=== PATIENT | female | born 1945 ===

== ENCOUNTER 2017-06-28 00:58 | Inpatient (IN) | payer MEDICARE, OTHER ==
[2017-06-28] MEDS ORDERED: PROPOFOL 100 ML (01:09)
[2017-06-28] MEDS: ETOMIDATE 20 MG INJ IV (01:49)
[2017-06-28] MEDS: SUCCINYLCHOLINE CHLORIDE 100 MG/5 ML SYG IV (01:50)
[2017-06-28] MEDS: PROPOFOL 100 ML IV ×2 (01:50→06:56)
[2017-06-28] MEDS: SOD CHLORIDE 0.9% 1,000 ML IV (01:50)
[2017-06-28 02:19] LABS: ADD MAN DIFF? NO
[2017-06-28 02:22] LABS: BASOPHIL # 0.1 10^3/ul (0.0-0.1); BASOPHILS % 0.3 % (0.0-2.0); EOSINOPHILS # 0.2 10^3/ul (0.0-0.5); HEMATOCRIT 24.9 % (37.0-47.0); HEMOGLOBIN 7.6 g/dl (12.0-16.0); LYMPHOCYTES # 2.3 10^3/ul (0.8-2.9); LYMPHOCYTES % 12.8 % (15.0-51.0); MEAN CORPUSCULAR HEMOGLOBIN 31.4 pg (29.0-33.0); MEAN CORPUSCULAR HGB CONC 30.5 g/dl (32.0-37.0); MEAN CORPUSCULAR VOLUME 102.9 fl (82.0-101.0); MEAN PLATELET VOLUME 11.3 fl (7.4-10.4); MONOCYTE # 0.9 10^3/ul (0.3-0.9); MONOCYTES % 4.9 % (0.0-11.0); NEUTROPHIL # 14.3 10^3/ul (1.6-7.5); NEUTROPHILS % 78.1 % (39.0-77.0); NUCLEATED RED BLOOD CELLS # 0.7 10^3/ul (0.0-0.0); NUCLEATED RED BLOOD CELLS% 3.9 /100WBC (0.0-0.0); PLATELET COUNT 420 10^3/UL (140-415); RED BLOOD COUNT 2.42 10^6/ul (4.20-5.40); RED CELL DISTRIBUTION WIDTH 17.4 % (11.5-14.5)
[2017-06-28 02:22] LABS: WHITE BLOOD COUNT 18.3 10^3/ul (4.8-10.8)
[2017-06-28 02:26] LABS: ADD UMIC YES; UR ASCORBIC ACID NEGATIVE (NEGATIVE); UR BACTERIA FEW /HPF (NONE SEEN); UR BILIRUBIN (Dip) NEGATIVE (NEGATIVE); UR BLOOD (Dip) 1+ mg/dL (NEGATIVE); UR BUDDING YEAST MANY /HPF (NONE SEEN); UR CLARITY CLOUDY (CLEAR); UR COLOR YELLOW (YELLOW); UR GLUCOSE (Dip) NEGATIVE (NEGATIVE); UR KETONES (Dip) NEGATIVE (NEGATIVE); UR LEUKOCYTE ESTERASE (Dip) 2+ Leu/ul (NEGATIVE); UR NITRITE (Dip) NEGATIVE (NEGATIVE); UR RBC 81 /HPF (0-5); UR SPECIFIC GRAVITY (Dip) 1.013 (1.003-1.030); UR TOTAL PROTEIN (Dip) 3+ mg/dl (NEGATIVE); UR UROBILINOGEN (Dip) NEGATIVE (NEGATIVE); UR WBC 83 /HPF (0-5)
[2017-06-28] MEDS ORDERED: NORepinephrine 8MG/250 ML (PMX 250 ML IV (02:30)
[2017-06-28 02:31] LABS: AADO2 Arterial 262.8 mmHg (7.0-24.0); Allen Test ACCEPTAB; Arterial Base Excess 0.9 mmol/L (-3.0-3); Arterial Blood Gas Oxygen Sat 98.7 mmHG (95.0-100.0); Arterial COHb 0.4 % (0.0-3.0); Arterial Fraction of Oxyhgb 97.7 % (93.0-99.0); Arterial HCO3 23.8 mmol/L (22.0-26.0); Arterial MetHb 0.6 % (0.0-1.5); Arterial Total Hemglobin 6.3 g/dl (12.0-18.0); Arterial pCO2 29.5 mmhg (35-45); Blood Gas Mean Airway Pressure 11; MODE VENTAC; Site Left Radial
[2017-06-28 02:40] LABS: ALANINE AMINOTRANSFERASE 31 IU/L (13-69); ALBUMIN 3.1 g/dl (3.3-4.9); ALBUMIN/GLOBULIN RATIO 0.91; ALKALINE PHOSPHATASE 116 IU/L (42-121); ANION GAP 23 (8-16); ASPARTATE AMINO TRANSFERASE 70 IU/L (15-46); BILIRUBIN,INDIRECT 0.1 mg/dl (0-1.1); BILIRUBIN,TOTAL 0.1 mg/dl (0.2-1.3); BLOOD UREA NITROGEN 66 mg/dl (7-20); CALCIUM 8.4 mg/dl (8.4-10.2); CARBON DIOXIDE 20 mmol/L (21-31); CHLORIDE 94 mmol/L (97-110); GLUCOSE 139 mg/dl (70-220); SODIUM 132 mmol/L (135-144); TOTAL PROTEIN 6.5 g/dl (6.1-8.1)
[2017-06-28 02:46] LABS: INR 1.16; PT RATIO 1.2
[2017-06-28 02:48] LABS: PARTIAL THROMBOPLASTIN TIME 43.9 Sec (25.0-35.0)
[2017-06-28] MEDS: ACETAMINOPHEN 325 MG SUPP PR (03:43)
[2017-06-28] MEDS: CEFEPIME 2GM/50 ML (PMX) 50 ML IVPB (04:03)
[2017-06-28] MEDS: SODIUM CHLORIDE 0.9% 1L BAG IV* (04:12)
[2017-06-28] MEDS ORDERED: ALBUTEROL HFA 8 GM INHALER INH (04:30)
[2017-06-28] MEDS: DEXTROSE 5%-0.9% NACL 1,000 ML IV (04:30)
[2017-06-28] MEDS ORDERED: MAGNESIUM HYDROXIDE 30ML CUP PO (04:30)
[2017-06-28] MEDS ORDERED: VANCOMYCIN IV PER PHARMACY XX (04:30)
[2017-06-28] MEDS ORDERED: BISACODYL 10 MG SUPP PR (04:30)
[2017-06-28] MEDS ORDERED: ACETAMINOPHEN 650 MG SUPP PR (04:30)
[2017-06-28] MEDS ORDERED: IPRATROPIUM (HFA) 12.9 GM INHALER INH (04:30)
[2017-06-28] MEDS ORDERED: ONDANSETRON 4 MG INJ IV (04:30)
[2017-06-28] MEDS: VANCOMYCIN 1 GM (PMX) 250 ML IVPB (04:52)
[2017-06-28 05:56] LABS: LACTIC ACID 8.7 mmol/L (0.5-2.0)
[2017-06-28 06:43] LABS: LACTIC ACID 1.2 mmol/L (0.5-2.0)
[2017-06-28] MEDS: PIPER-TAZO 2.25 GM (PMX) 50 ML IV ×3 (06:56→21:09)
[2017-06-28 07:00] LABS: IRON 44 ug/dl (35-150)
[2017-06-28] MEDS ORDERED: PENDING SANTYL ORDER FOR WOUND CARE XX (07:00)
[2017-06-28 07:09] LABS: % IRON SATURATION 23 % SAT (22-52); TOTAL IRON BINDING CAPACITY 189 ug/dl (241-421)
[2017-06-28 07:27] LABS: ADD MAN DIFF? NO
[2017-06-28 07:35] LABS: ABNORMAL IP MESSAGE 1; BASOPHILS % 0.1 % (0.0-2.0); EOSINOPHILS % 0.1 % (0.0-7.0); HEMATOCRIT 18.7 % (37.0-47.0); LYMPHOCYTES # 1.3 10^3/ul (0.8-2.9); MEAN CORPUSCULAR HEMOGLOBIN 31.2 pg (29.0-33.0); MEAN CORPUSCULAR HGB CONC 31.6 g/dl (32.0-37.0); MEAN CORPUSCULAR VOLUME 98.9 fl (82.0-101.0); MEAN PLATELET VOLUME 10.6 fl (7.4-10.4); MONOCYTE # 0.3 10^3/ul (0.3-0.9); MONOCYTES % 2.2 % (0.0-11.0); NEUTROPHIL # 12.4 10^3/ul (1.6-7.5); NEUTROPHILS % 85.9 % (39.0-77.0); NUCLEATED RED BLOOD CELLS # 0.2 10^3/ul (0.0-0.0); NUCLEATED RED BLOOD CELLS% 1.4 /100WBC (0.0-0.0); PLATELET COUNT 248 10^3/UL (140-415); RED BLOOD COUNT 1.89 10^6/ul (4.20-5.40)
[2017-06-28 07:35] LABS: WHITE BLOOD COUNT 14.4 10^3/ul (4.8-10.8)
[2017-06-28 07:42] LABS: HEMOGLOBIN 5.9 g/dl (12.0-16.0); POSITIVE DIFF @See below
[2017-06-28] MEDS: DEXTROSE 5%-0.45% NACL 1,000 ML IV (08:01)
[2017-06-28 08:21] LABS: ALANINE AMINOTRANSFERASE 36 IU/L (13-69); ALBUMIN 2.1 g/dl (3.3-4.9); ALKALINE PHOSPHATASE 82 IU/L (42-121); ANION GAP 12 (8-16); ASPARTATE AMINO TRANSFERASE 131 IU/L (15-46); BILIRUBIN,INDIRECT 0.1 mg/dl (0-1.1); BILIRUBIN,TOTAL 0.1 mg/dl (0.2-1.3); BLOOD UREA NITROGEN 62 mg/dl (7-20); CALCIUM 7.2 mg/dl (8.4-10.2); CARBON DIOXIDE 24 mmol/L (21-31); CHLORIDE 101 mmol/L (97-110); CREATININE 2.69 mg/dl (0.44-1.00); GLUCOSE 144 mg/dl (70-220); POTASSIUM 3.8 mmol/L (3.5-5.1); SODIUM 133 mmol/L (135-144); TOTAL PROTEIN 4.7 g/dl (6.1-8.1)
[2017-06-28] MEDS: HEPARIN 5,000 UNIT/0.5 ML VIAL SC (08:40)
[2017-06-28] MEDS: LEVOFLOXACIN 500MG/D5W (PMX) 100 ML IVPB (09:00)
[2017-06-28] MEDS: FAMOTIDINE 20 MG INJ IV (10:59)
[2017-06-28 12:13] LABS: FERRITIN > 10000.0 ng/ml (11.1-264.0)
[2017-06-28 12:22] LABS: AADO2 Arterial 147.6 mmHg (7.0-24.0); Allen Test ACCEPTAB; Arterial Base Excess -0.2 mmol/L (-3.0-3); Arterial Blood Gas Oxygen Sat 94.6 mmHG (95.0-100.0); Arterial COHb 0.1 % (0.0-3.0); Arterial HCO3 25.3 mmol/L (22.0-26.0); Arterial MetHb 0.5 % (0.0-1.5); Arterial Total Hemglobin 7.6 g/dl (12.0-18.0); MODE VENT - AC; Site Left Radial
[2017-06-28] MEDS: ALBUMIN HUMAN 25% 100 ML IV (13:03)
[2017-06-28] MEDS: FOLIC ACID 1 MG TAB NGT (14:59)
[2017-06-28] MEDS: CYANOCOBALAMIN 500 MCG TAB NGT (14:59)
[2017-06-28 15:22] LABS: ANION GAP 15 (8-16); BLOOD UREA NITROGEN 62 mg/dl (7-20); CALCIUM 7.8 mg/dl (8.4-10.2); CARBON DIOXIDE 26 mmol/L (21-31); CHLORIDE 99 mmol/L (97-110); CREATININE 2.62 mg/dl (0.44-1.00); GLUCOSE 119 mg/dl (70-220); POTASSIUM 3.5 mmol/L (3.5-5.1); SODIUM 136 mmol/L (135-144)
[2017-06-28 15:29] LABS: SODIUM,URINE RANDOM 20 mmol/L (30-90)
[2017-06-28 15:29] LABS: POTASSIUM,URINE RANDOM 19.6 mmol/L (25-125)
[2017-06-28] MEDS: PANTOPRAZOLE IV 80 MG in SOD CHLORIDE 0.9% 100 ML IV ×2 (15:30→23:05)
[2017-06-28] MEDS: SOD CHLORIDE 0.9% 500 ML IV (15:30)
[2017-06-28] MEDS ORDERED: SUCCINYLCHOLINE CHLORIDE 100 MG/5 ML SYG IV (16:00)
[2017-06-28] MEDS ORDERED: ETOMIDATE 20 MG INJ (16:00)
[2017-06-28] MEDS: FUROSEMIDE 40 MG INJ IV (16:11)
[2017-06-28] MEDS: EPOETIN 4000 UNITS/ML (NON ESRD/NON ONCOLOGY) SC (17:35)
[2017-06-28 18:30] LABS: OCCULT BLOOD STOOL NEGATIVE (NEGATIVE)
[2017-06-28] MEDS: ASPIRIN 81 MG TAB PO (18:37)
[2017-06-29 05:04] LABS: ADD MAN DIFF? NO
[2017-06-29] MEDS: PIPER-TAZO 2.25 GM (PMX) 50 ML IV ×3 (05:33→21:51)
[2017-06-29 06:15] LABS: CREATINE KINASE 180 IU/L (23-200)
[2017-06-29 06:16] LABS: MAGNESIUM 1.5 mg/dl (1.7-2.5)
[2017-06-29 06:16] LABS: CHOL/HDL RATIO 2.7 RATIO; CHOLESTEROL 71 mg/dl (100-200); HDL CHOLESTEROL 26 mg/dl (33-92); LDL CHOLESTEROL,CALCULATED 16 mg/dl; TRIGLYCERIDES 147 mg/dl (0-149)
[2017-06-29 06:21] LABS: ABNORMAL IP MESSAGE 1; BASOPHILS % 0.2 % (0.0-2.0); EOSINOPHILS # 0.4 10^3/ul (0.0-0.5); HEMATOCRIT 21.1 % (37.0-47.0); LYMPHOCYTES # 0.9 10^3/ul (0.8-2.9); LYMPHOCYTES % 6.7 % (15.0-51.0); MEAN CORPUSCULAR HEMOGLOBIN 31.1 pg (29.0-33.0); MEAN CORPUSCULAR HGB CONC 31.3 g/dl (32.0-37.0); MEAN CORPUSCULAR VOLUME 99.5 fl (82.0-101.0); MONOCYTE # 0.3 10^3/ul (0.3-0.9); MONOCYTES % 2.1 % (0.0-11.0); NEUTROPHIL # 11.9 10^3/ul (1.6-7.5); NEUTROPHILS % 86.5 % (39.0-77.0); NUCLEATED RED BLOOD CELLS # 0.3 10^3/ul (0.0-0.0); NUCLEATED RED BLOOD CELLS% 2.3 /100WBC (0.0-0.0); PLATELET COUNT 250 10^3/UL (140-415); RED BLOOD COUNT 2.12 10^6/ul (4.20-5.40); RED CELL DISTRIBUTION WIDTH 17.4 % (11.5-14.5)
[2017-06-29 06:21] LABS: WHITE BLOOD COUNT 13.8 10^3/ul (4.8-10.8)
[2017-06-29 06:24] LABS: HEMOGLOBIN 6.6 g/dl (12.0-16.0); POSITIVE DIFF @See below
[2017-06-29 06:26] LABS: B-TYPE NATRIURETIC PEPTIDE 33400 PG/ML (0-125)
[2017-06-29 06:28] LABS: CK INDEX 3.2; CK-MB 5.81 ng/ml (0.0-2.4)
[2017-06-29] MEDS: PANTOPRAZOLE IV 80 MG in SOD CHLORIDE 0.9% 100 ML IV ×2 (08:11→20:15)
[2017-06-29] MEDS: ACETAMINOPHEN 650MG/20.3ML CUP PO ×2 (08:11→17:08)
[2017-06-29] MEDS: FOLIC ACID 1 MG TAB NGT (08:12)
[2017-06-29] MEDS: CYANOCOBALAMIN 500 MCG TAB NGT (08:15)
[2017-06-29 08:26] LABS: ALANINE AMINOTRANSFERASE 49 IU/L (13-69); ALBUMIN 2.5 g/dl (3.3-4.9); ALBUMIN/GLOBULIN RATIO 0.83; ALKALINE PHOSPHATASE 79 IU/L (42-121); ANION GAP 14 (8-16); ASPARTATE AMINO TRANSFERASE 137 IU/L (15-46); BILIRUBIN,INDIRECT 0.2 mg/dl (0-1.1); BILIRUBIN,TOTAL 0.2 mg/dl (0.2-1.3); BLOOD UREA NITROGEN 59 mg/dl (7-20); CALCIUM 8.2 mg/dl (8.4-10.2); CARBON DIOXIDE 24 mmol/L (21-31); CHLORIDE 102 mmol/L (97-110); GLUCOSE 84 mg/dl (70-220); POTASSIUM 3.7 mmol/L (3.5-5.1); SODIUM 136 mmol/L (135-144); TOTAL PROTEIN 5.5 g/dl (6.1-8.1)
[2017-06-29] MEDS ORDERED: FOLIC ACID 1 MG TAB NGT (09:00)
[2017-06-29] MEDS ORDERED: CYANOCOBALAMIN 500 MCG TAB NGT (09:00)
[2017-06-29 10:35] LABS: ANISOCYTOSIS 1+ (0-0); BAND NEUTROPHILS #M 1.9 10^3/ul (0.0-0.6); BAND NEUTROPHILS % (M) 14 % (0-4); BURR CELLS 1+ (0-0); EOSINOPHILS % (M) 1 % (0-7); ERYTHROBLAST% (NRBC) (M) 1 % (0-0); LYMPHOCYTES #M 1.3 10^3/ul (0.8-2.9); LYMPHOCYTES % (M) 10 % (15-51); METAMYELOCYTES #M 0.1 10^3/ul (0.0-0.0); METAMYELOCYTES %M 1 % (0-0); PLATELET ESTIMATE NORMAL; POIKILOCYTOSIS 1+ (0-0); POLYCHROMASIA 2+ (0-0); SEG NEUT #M 10.5 10^3/ul (1.7-7.5); SEGMENTED NEUTROPHILS (M) % 74 % (39-77); SMUDGE%M 2 % (0-0)
[2017-06-29] MEDS: PROPOFOL 100 ML IV (12:54)
[2017-06-29] MEDS: MAGNESIUM SULFATE 2 GM/50 ML 50 ML IVPB (14:18)
[2017-06-29] MEDS: ALBUMIN HUMAN 25% 100 ML IV (14:34)
[2017-06-29] MEDS: SOD CHLORIDE 0.9% 500 ML IV (15:35)
[2017-06-29 15:47] LABS: FREE T4 (FREE THYROXINE) 2.12 ng/dl (0.78-2.44)
[2017-06-29] MEDS: FUROSEMIDE 40 MG INJ IV (16:49)
[2017-06-29] MEDS: ASPIRIN 81 MG TAB NGT (18:49)
[2017-06-29] MEDS: BALSAM PERU/CASTOR OIL 60 GM TUBE TOP (20:45)
[2017-06-30] MEDS: VANCOMYCIN 750 MG in DEXTROSE 5% 150 ML IVPB (05:38)
[2017-06-30 05:43] LABS: ADD MAN DIFF? NO
[2017-06-30 06:11] LABS: WHITE BLOOD COUNT 10.1 10^3/ul (4.8-10.8)
[2017-06-30 06:11] LABS: ABNORMAL IP MESSAGE 1; BASOPHILS % 0.2 % (0.0-2.0); EOSINOPHILS # 0.3 10^3/ul (0.0-0.5); EOSINOPHILS % 2.6 % (0.0-7.0); HEMATOCRIT 21.1 % (37.0-47.0); LYMPHOCYTES # 0.8 10^3/ul (0.8-2.9); LYMPHOCYTES % 7.6 % (15.0-51.0); MEAN CORPUSCULAR HEMOGLOBIN 31.4 pg (29.0-33.0); MEAN CORPUSCULAR HGB CONC 30.8 g/dl (32.0-37.0); MEAN CORPUSCULAR VOLUME 101.9 fl (82.0-101.0); MEAN PLATELET VOLUME 11.1 fl (7.4-10.4); MONOCYTE # 0.3 10^3/ul (0.3-0.9); MONOCYTES % 2.8 % (0.0-11.0); NEUTROPHIL # 8.6 10^3/ul (1.6-7.5); NEUTROPHILS % 85.2 % (39.0-77.0); NUCLEATED RED BLOOD CELLS # 0.1 10^3/ul (0.0-0.0); NUCLEATED RED BLOOD CELLS% 0.7 /100WBC (0.0-0.0); PLATELET COUNT 227 10^3/UL (140-415); RED BLOOD COUNT 2.07 10^6/ul (4.20-5.40); RED CELL DISTRIBUTION WIDTH 17.2 % (11.5-14.5)
[2017-06-30] MEDS: PANTOPRAZOLE IV 80 MG in SOD CHLORIDE 0.9% 100 ML IV (06:14)
[2017-06-30 06:18] LABS: ALANINE AMINOTRANSFERASE 41 IU/L (13-69); ALBUMIN 2.5 g/dl (3.3-4.9); ALKALINE PHOSPHATASE 92 IU/L (42-121); ANION GAP 14 (8-16); ASPARTATE AMINO TRANSFERASE 78 IU/L (15-46); BILIRUBIN,INDIRECT 0.2 mg/dl (0-1.1); BILIRUBIN,TOTAL 0.2 mg/dl (0.2-1.3); BLOOD UREA NITROGEN 63 mg/dl (7-20); CALCIUM 7.7 mg/dl (8.4-10.2); CARBON DIOXIDE 24 mmol/L (21-31); CHLORIDE 104 mmol/L (97-110); CREATININE 2.76 mg/dl (0.44-1.00); GLUCOSE 191 mg/dl (70-220); POTASSIUM 3.8 mmol/L (3.5-5.1); SODIUM 138 mmol/L (135-144)
[2017-06-30 06:25] LABS: HEMOGLOBIN 6.5 g/dl (12.0-16.0); POSITIVE DIFF @See below
[2017-06-30 06:44] LABS: MAGNESIUM 2.1 mg/dl (1.7-2.5)
[2017-06-30 06:44] LABS: PHOSPHORUS 3.8 mg/dl (2.5-4.9)
[2017-06-30] MEDS: PIPER-TAZO 2.25 GM (PMX) 50 ML IV (07:32)
[2017-06-30] MEDS: ASPIRIN 81 MG TAB NGT (08:18)
[2017-06-30] MEDS: FOLIC ACID 1 MG TAB NGT (08:18)
[2017-06-30] MEDS: BALSAM PERU/CASTOR OIL 60 GM TUBE TOP ×2 (08:19→22:27)
[2017-06-30] MEDS: CYANOCOBALAMIN 500 MCG TAB NGT (08:19)
[2017-06-30] MEDS: FUROSEMIDE 40 MG INJ IV ×2 (10:32→22:49)
[2017-06-30] MEDS: PROPOFOL 100 ML IV (12:47)
[2017-06-30] MEDS: AMPICILLIN 1 GM/NS (PMX) 50 ML IVPB ×2 (13:39→22:48)
[2017-06-30] MEDS: ALBUMIN HUMAN 25% 100 ML IV (14:24)
[2017-06-30] MEDS: FUROSEMIDE 20 MG INJ IV (15:48)
[2017-06-30] MEDS: EPOETIN 4000 UNITS/ML (NON ESRD/NON ONCOLOGY) SC (17:17)
[2017-06-30] MEDS ORDERED: PANTOPRAZOLE 40 MG INJ IV (18:00)
[2017-06-30] MEDS: morphine 2 MG INJ IV (18:53)
[2017-07-01 06:00] LABS: WHITE BLOOD COUNT 15.2 10^3/ul (4.8-10.8)
[2017-07-01 06:00] LABS: ABNORMAL IP MESSAGE 1; HEMATOCRIT 19.7 % (37.0-47.0); MEAN CORPUSCULAR HEMOGLOBIN 31.1 pg (29.0-33.0); MEAN CORPUSCULAR HGB CONC 30.5 g/dl (32.0-37.0); MEAN CORPUSCULAR VOLUME 102.1 fl (82.0-101.0); MEAN PLATELET VOLUME 11.6 fl (7.4-10.4); NUCLEATED RED BLOOD CELLS% 0.7 /100WBC (0.0-0.0); PLATELET COUNT 199 10^3/UL (140-415); RED BLOOD COUNT 1.93 10^6/ul (4.20-5.40); RED CELL DISTRIBUTION WIDTH 17.1 % (11.5-14.5)
[2017-07-01] MEDS: PROPOFOL 100 ML IV (06:31)
[2017-07-01 06:32] LABS: ANION GAP 15 (8-16); BLOOD UREA NITROGEN 72 mg/dl (7-20); CALCIUM 8.2 mg/dl (8.4-10.2); CARBON DIOXIDE 26 mmol/L (21-31); CHLORIDE 103 mmol/L (97-110); CREATININE 2.86 mg/dl (0.44-1.00); GLUCOSE 193 mg/dl (70-220); PHOSPHORUS 3.2 mg/dl (2.5-4.9); POTASSIUM 3.7 mmol/L (3.5-5.1); SODIUM 140 mmol/L (135-144)
[2017-07-01 06:35] LABS: ADD MAN DIFF? YES; POSITIVE DIFF @See below
[2017-07-01 08:38] LABS: AADO2 Arterial 612.8 mmHg (7.0-24.0); Allen Test ACCEPTAB; Arterial Blood Gas Oxygen Sat 91.1 mmHG (95.0-100.0); Arterial COHb 0.3 % (0.0-3.0); Arterial Fraction of Oxyhgb 90.4 % (93.0-99.0); Arterial HCO3 22.1 mmol/L (22.0-26.0); Arterial MetHb 0.5 % (0.0-1.5); Arterial Total Hemglobin 7.7 g/dl (12.0-18.0); Arterial pCO2 34.6 mmhg (35-45); MODE VENT - AC; Site Left Radial
[2017-07-01] MEDS: FOLIC ACID 1 MG TAB NGT (08:46)
[2017-07-01] MEDS: CYANOCOBALAMIN 500 MCG TAB NGT (08:46)
[2017-07-01] MEDS: AMPICILLIN 1 GM/NS (PMX) 50 ML IVPB (08:46)
[2017-07-01] MEDS: ASPIRIN 81 MG TAB NGT (08:46)
[2017-07-01] MEDS: BALSAM PERU/CASTOR OIL 60 GM TUBE TOP (08:47)
[2017-07-01 12:51] LABS: ANISOCYTOSIS 2+ (0-0); BAND NEUTROPHILS #M 4.1 10^3/ul (0.0-0.6); BAND NEUTROPHILS % (M) 27 % (0-4); HYPOCHROMASIA 1+ (0-0); LYMPHOCYTES #M 1.3 10^3/ul (0.8-2.9); LYMPHOCYTES % (M) 9 % (15-51); MICROCYTOSIS 1+ (0-0); MONOCYTE #M 0.1 10^3/ul (0.3-0.9); MONOCYTES % (M) 1 % (0-11); PLATELET ESTIMATE NORMAL; POIKILOCYTOSIS 1+ (0-0); POLYCHROMASIA 3+ (0-0); SEG NEUT #M 10.2 10^3/ul (1.7-7.5); SEGMENTED NEUTROPHILS (M) % 63 % (39-77); SMUDGE%M 5 % (0-0)
[2017-07-01] MEDS ORDERED: PIPER-TAZO 3.375 GM IV (PMX) 50 ML IVPB (15:00)
[2017-07-01] MEDS: FLUCONAZOLE 100 MG TAB PO (15:41)
[2017-07-01] MEDS: PIPER-TAZO 2.25 GM (PMX) 50 ML IVPB ×2 (15:41→20:33)
[2017-07-01] MEDS ORDERED: DEXTROSE 50% 50 ML SYRINGE IV (16:00)
[2017-07-01] MEDS ORDERED: GLUCOSE GEL 15 GRAM TUBE BUCCAL (16:00)
[2017-07-01] MEDS ORDERED: GLUCAGON 1 MG INJ IM (16:00)
[2017-07-01] MEDS ORDERED: GLUCOSE GEL 15 GRAM TUBE PO ×2 (16:00)
[2017-07-01] MEDS: ALBUMIN HUMAN 25% 100 ML IV (17:45)
[2017-07-01] MEDS: PANTOPRAZOLE 40 MG INJ IV (17:45)
[2017-07-01] MEDS: INSULIN ASPART [NOVOLOG] 3 ML PEN SC ×2 (17:48→20:43)
[2017-07-01] MEDS: BUMETANIDE 12 MG in DEXTROSE 5% 72 ML IV (18:26)
[2017-07-01] MEDS: FUROSEMIDE 40 MG INJ IV ×2 (19:58→23:00)
[2017-07-01] MEDS: METOLAZONE 10 MG TAB PO (22:39)
[2017-07-01 22:54] LABS: AADO2 Arterial 619.4 mmHg (7.0-24.0); Allen Test ACCEPTAB; Arterial Base Excess 1.4 mmol/L (-3.0-3); Arterial Blood Gas Oxygen Sat 82.4 mmHG (95.0-100.0); Arterial COHb 0.4 % (0.0-3.0); Arterial Fraction of Oxyhgb 81.8 % (93.0-99.0); Arterial HCO3 26.5 mmol/L (22.0-26.0); Arterial MetHb 0.3 % (0.0-1.5); Arterial Total Hemglobin 7.4 g/dl (12.0-18.0); Arterial pCO2 44.5 mmhg (35-45); MODE VENT - AC; Site Right Radial
[2017-07-02] MEDS: ACCU-CHEK XX (02:00)
[2017-07-02] MEDS: INSULIN ASPART [NOVOLOG] 3 ML PEN SC ×6 (02:10→20:35)
[2017-07-02 03:45] LABS: AADO2 Arterial 589.2 mmHg (7.0-24.0); Allen Test ACCEPTAB; Arterial Base Excess 2.5 mmol/L (-3.0-3); Arterial Blood Gas Oxygen Sat 95.2 mmHG (95.0-100.0); Arterial COHb 0.3 % (0.0-3.0); Arterial Fraction of Oxyhgb 94.5 % (93.0-99.0); Arterial HCO3 27.4 mmol/L (22.0-26.0); Arterial MetHb 0.4 % (0.0-1.5); Arterial pCO2 44.2 mmhg (35-45); MODE VENT - AC; Site Left Radial
[2017-07-02] MEDS: PROPOFOL 100 ML IV (04:21)
[2017-07-02 05:31] LABS: ADD MAN DIFF? NO
[2017-07-02 05:34] LABS: WHITE BLOOD COUNT 19.2 10^3/ul (4.8-10.8)
[2017-07-02 05:34] LABS: ABNORMAL IP MESSAGE 1; BASOPHILS % 0.1 % (0.0-2.0); EOSINOPHILS # 0.1 10^3/ul (0.0-0.5); EOSINOPHILS % 0.3 % (0.0-7.0); HEMATOCRIT 18.2 % (37.0-47.0); LYMPHOCYTES # 0.8 10^3/ul (0.8-2.9); LYMPHOCYTES % 4.3 % (15.0-51.0); MEAN CORPUSCULAR HEMOGLOBIN 31.1 pg (29.0-33.0); MEAN CORPUSCULAR HGB CONC 30.8 g/dl (32.0-37.0); MEAN CORPUSCULAR VOLUME 101.1 fl (82.0-101.0); MEAN PLATELET VOLUME 12.2 fl (7.4-10.4); MONOCYTE # 0.5 10^3/ul (0.3-0.9); MONOCYTES % 2.7 % (0.0-11.0); NEUTROPHIL # 17.5 10^3/ul (1.6-7.5); NEUTROPHILS % 91.1 % (39.0-77.0); NUCLEATED RED BLOOD CELLS% 0.2 /100WBC (0.0-0.0); PLATELET COUNT 172 10^3/UL (140-415); RED CELL DISTRIBUTION WIDTH 16.5 % (11.5-14.5)
[2017-07-02] MEDS: BALSAM PERU/CASTOR OIL 60 GM TUBE TOP ×3 (06:00→21:00)
[2017-07-02 06:01] LABS: HEMOGLOBIN 5.6 g/dl (12.0-16.0); POSITIVE DIFF @See below
[2017-07-02] MEDS: PANTOPRAZOLE 40 MG INJ IV ×2 (06:04→17:12)
[2017-07-02] MEDS: PIPER-TAZO 2.25 GM (PMX) 50 ML IVPB ×4 (06:05→22:00)
[2017-07-02 06:13] LABS: ALBUMIN 2.8 g/dl (3.3-4.9); ANION GAP 15 (8-16); BLOOD UREA NITROGEN 82 mg/dl (7-20); CALCIUM 8.3 mg/dl (8.4-10.2); CARBON DIOXIDE 27 mmol/L (21-31); CHLORIDE 101 mmol/L (97-110); CREATININE 2.82 mg/dl (0.44-1.00); GLUCOSE 188 mg/dl (70-220); PHOSPHORUS 3.6 mg/dl (2.5-4.9); POTASSIUM 3.3 mmol/L (3.5-5.1); SODIUM 140 mmol/L (135-144)
[2017-07-02] MEDS: ASPIRIN 81 MG TAB NGT (08:12)
[2017-07-02] MEDS: FLUCONAZOLE 100 MG TAB PO (08:12)
[2017-07-02] MEDS: FOLIC ACID 1 MG TAB NGT (08:12)
[2017-07-02] MEDS: CYANOCOBALAMIN 500 MCG TAB NGT (08:12)
[2017-07-02] MEDS: SOD FERRIC GLUC COMPLX 125 MG in SOD CHLORIDE 0.9% 100 ML IVPB ×2 (11:00→12:02)
[2017-07-02] MEDS: POTASSIUM CHLORIDE 50 ML IVPB ×2 (12:41→14:12)
[2017-07-02] MEDS: INSULIN GLARGINE [LANtus] 3 ML PEN SC (12:47)
[2017-07-02] MEDS ORDERED: HEPARIN 1000 UNITS/ML 10 ML INJ (15:12)
[2017-07-02] MEDS: HEPARIN 1000 UNITS/ML 10 ML INJ HE (15:48)
[2017-07-02] MEDS: EPOETIN 4000 UNITS/ML (NON ESRD/NON ONCOLOGY) SC (16:50)
[2017-07-03] MEDS: INSULIN ASPART [NOVOLOG] 3 ML PEN SC ×6 (01:00→20:53)
[2017-07-03] MEDS: ACCU-CHEK XX (02:00)
[2017-07-03] MEDS: ACETAMINOPHEN 650MG/20.3ML CUP PO (02:37)
[2017-07-03] MEDS: PANTOPRAZOLE 40 MG INJ IV ×2 (05:26→18:39)
[2017-07-03] MEDS: PROPOFOL 100 ML IV (05:26)
[2017-07-03] MEDS: PIPER-TAZO 2.25 GM (PMX) 50 ML IVPB ×3 (05:26→22:38)
[2017-07-03 05:30] LABS: ADD MAN DIFF? NO
[2017-07-03 05:50] LABS: WHITE BLOOD COUNT 17.5 10^3/ul (4.8-10.8)
[2017-07-03 05:50] LABS: ABNORMAL IP MESSAGE 1; BASOPHILS % 0.1 % (0.0-2.0); EOSINOPHILS # 0.4 10^3/ul (0.0-0.5); EOSINOPHILS % 2.1 % (0.0-7.0); HEMATOCRIT 18.1 % (37.0-47.0); LYMPHOCYTES % 5.9 % (15.0-51.0); MEAN CORPUSCULAR HEMOGLOBIN 30.7 pg (29.0-33.0); MEAN CORPUSCULAR HGB CONC 29.8 g/dl (32.0-37.0); MEAN CORPUSCULAR VOLUME 102.8 fl (82.0-101.0); MEAN PLATELET VOLUME 12.8 fl (7.4-10.4); MONOCYTE # 0.6 10^3/ul (0.3-0.9); MONOCYTES % 3.4 % (0.0-11.0); NEUTROPHIL # 15.2 10^3/ul (1.6-7.5); NEUTROPHILS % 87.2 % (39.0-77.0); NUCLEATED RED BLOOD CELLS # 0.1 10^3/ul (0.0-0.0); NUCLEATED RED BLOOD CELLS% 0.5 /100WBC (0.0-0.0); PLATELET COUNT 160 10^3/UL (140-415); RED BLOOD COUNT 1.76 10^6/ul (4.20-5.40); RED CELL DISTRIBUTION WIDTH 16.6 % (11.5-14.5)
[2017-07-03 06:41] LABS: ALBUMIN 2.3 g/dl (3.3-4.9); ANION GAP 15 (8-16); BLOOD UREA NITROGEN 86 mg/dl (7-20); CALCIUM 7.7 mg/dl (8.4-10.2); CARBON DIOXIDE 26 mmol/L (21-31); CHLORIDE 104 mmol/L (97-110); CREATININE 2.98 mg/dl (0.44-1.00); GLUCOSE 155 mg/dl (70-220); MAGNESIUM 2.1 mg/dl (1.7-2.5); PHOSPHORUS 2.3 mg/dl (2.5-4.9); POTASSIUM 3.5 mmol/L (3.5-5.1); SODIUM 141 mmol/L (135-144)
[2017-07-03 07:06] LABS: POSITIVE DIFF @See below
[2017-07-03 07:10] LABS: HEMOGLOBIN 5.4 g/dl (12.0-16.0)
[2017-07-03] MEDS: CYANOCOBALAMIN 500 MCG TAB NGT (09:00)
[2017-07-03] MEDS: ASPIRIN 81 MG TAB NGT (09:00)
[2017-07-03 09:09] LABS: AADO2 Arterial 135.4 mmHg (7.0-24.0); Allen Test ACCEPTAB; Arterial Base Excess 3.1 mmol/L (-3.0-3); Arterial Blood Gas Oxygen Sat 99.5 mmHG (95.0-100.0); Arterial COHb 0.9 % (0.0-3.0); Arterial Fraction of Oxyhgb 98.1 % (93.0-99.0); Arterial HCO3 25.9 mmol/L (22.0-26.0); Arterial MetHb 0.5 % (0.0-1.5); Arterial Total Hemglobin 5.9 g/dl (12.0-18.0); Arterial pCO2 30.7 mmhg (35-45); MODE VENT - PC; Site Right Radial
[2017-07-03] MEDS: FOLIC ACID 1 MG TAB NGT (10:04)
[2017-07-03] MEDS: FLUCONAZOLE 100 MG TAB PO (10:05)
[2017-07-03] MEDS: BALSAM PERU/CASTOR OIL 60 GM TUBE TOP ×2 (10:06→21:00)
[2017-07-03] MEDS: INSULIN GLARGINE [LANtus] 3 ML PEN SC (10:08)
[2017-07-03] MEDS: SOD FERRIC GLUC COMPLX 125 MG in SOD CHLORIDE 0.9% 100 ML IVPB (12:11)
[2017-07-03] MEDS: ALBUMIN HUMAN 25% 100 ML IV (16:42)
[2017-07-04] MEDS: INSULIN ASPART [NOVOLOG] 3 ML PEN SC ×6 (00:34→20:37)
[2017-07-04] MEDS: ACCU-CHEK XX (00:36)
[2017-07-04] MEDS: PROPOFOL 100 ML IV (04:25)
[2017-07-04] MEDS: PANTOPRAZOLE 40 MG INJ IV ×2 (05:01→17:30)
[2017-07-04] MEDS: PIPER-TAZO 2.25 GM (PMX) 50 ML IVPB ×3 (05:06→20:26)
[2017-07-04 05:33] LABS: ADD MAN DIFF? NO
[2017-07-04 05:36] LABS: ABNORMAL IP MESSAGE 1; BASOPHILS % 0.1 % (0.0-2.0); EOSINOPHILS # 0.7 10^3/ul (0.0-0.5); EOSINOPHILS % 4.8 % (0.0-7.0); HEMATOCRIT 17.8 % (37.0-47.0); LYMPHOCYTES % 6.6 % (15.0-51.0); MEAN CORPUSCULAR HEMOGLOBIN 29.9 pg (29.0-33.0); MEAN CORPUSCULAR HGB CONC 29.2 g/dl (32.0-37.0); MEAN CORPUSCULAR VOLUME 102.3 fl (82.0-101.0); MEAN PLATELET VOLUME 12.9 fl (7.4-10.4); MONOCYTE # 0.6 10^3/ul (0.3-0.9); NEUTROPHIL # 12.3 10^3/ul (1.6-7.5); NEUTROPHILS % 81.3 % (39.0-77.0); NUCLEATED RED BLOOD CELLS # 0.1 10^3/ul (0.0-0.0); NUCLEATED RED BLOOD CELLS% 0.7 /100WBC (0.0-0.0); PLATELET COUNT 163 10^3/UL (140-415); RED BLOOD COUNT 1.74 10^6/ul (4.20-5.40); RED CELL DISTRIBUTION WIDTH 16.5 % (11.5-14.5)
[2017-07-04 05:36] LABS: WHITE BLOOD COUNT 15.1 10^3/ul (4.8-10.8)
[2017-07-04 06:02] LABS: HEMOGLOBIN 5.2 g/dl (12.0-16.0); POSITIVE DIFF @See below
[2017-07-04 06:09] LABS: ALBUMIN 2.6 g/dl (3.3-4.9); ANION GAP 16 (8-16); BLOOD UREA NITROGEN 56 mg/dl (7-20); CALCIUM 8.6 mg/dl (8.4-10.2); CARBON DIOXIDE 33 mmol/L (21-31); CHLORIDE 104 mmol/L (97-110); CREATININE 1.97 mg/dl (0.44-1.00); GLUCOSE 126 mg/dl (70-220); MAGNESIUM 2.2 mg/dl (1.7-2.5); PHOSPHORUS 1.8 mg/dl (2.5-4.9); SODIUM 150 mmol/L (135-144)
[2017-07-04 06:22] LABS: POTASSIUM 2.7 mmol/L (3.5-5.1)
[2017-07-04 07:54] LABS: ANION GAP 14 (8-16); BLOOD UREA NITROGEN 59 mg/dl (7-20); CARBON DIOXIDE 30 mmol/L (21-31); CHLORIDE 105 mmol/L (97-110); CREATININE 1.95 mg/dl (0.44-1.00); GLUCOSE 148 mg/dl (70-220); SODIUM 146 mmol/L (135-144)
[2017-07-04 07:57] LABS: POTASSIUM 2.8 mmol/L (3.5-5.1)
[2017-07-04] MEDS: FOLIC ACID 1 MG TAB NGT (09:31)
[2017-07-04] MEDS: FLUCONAZOLE 100 MG TAB PO (09:31)
[2017-07-04] MEDS: CYANOCOBALAMIN 500 MCG TAB NGT (09:31)
[2017-07-04] MEDS: BALSAM PERU/CASTOR OIL 60 GM TUBE TOP ×2 (09:32→20:26)
[2017-07-04] MEDS: INSULIN GLARGINE [LANtus] 3 ML PEN SC (09:35)
[2017-07-04] MEDS: SOD FERRIC GLUC COMPLX 125 MG in SOD CHLORIDE 0.9% 100 ML IVPB (11:17)
[2017-07-04] MEDS: POTASSIUM CHLORIDE 20 MEQ in DEXTROSE 5% 100 ML IVPB (12:55)
[2017-07-04 23:04] LABS: ADD UMIC YES; UR ASCORBIC ACID 20 mg/dL (NEGATIVE); UR BACTERIA MODERATE /HPF (NONE SEEN); UR BILIRUBIN (Dip) NEGATIVE (NEGATIVE); UR BLOOD (Dip) 1+ mg/dL (NEGATIVE); UR BUDDING YEAST MANY /HPF (NONE SEEN); UR CLARITY TURBID (CLEAR); UR COLOR AMBER (YELLOW); UR GLUCOSE (Dip) NEGATIVE (NEGATIVE); UR KETONES (Dip) NEGATIVE (NEGATIVE); UR LEUKOCYTE ESTERASE (Dip) 2+ Leu/ul (NEGATIVE); UR MUCUS FEW /HPF (NONE SEEN); UR NITRITE (Dip) NEGATIVE (NEGATIVE); UR RBC 130 /HPF (0-5); UR SPECIFIC GRAVITY (Dip) 1.023 (1.003-1.030); UR TOTAL PROTEIN (Dip) 3+ mg/dl (NEGATIVE); UR UROBILINOGEN (Dip) NEGATIVE (NEGATIVE); UR WBC 68 /HPF (0-5)
[2017-07-05] MEDS: ACCU-CHEK XX (01:02)
[2017-07-05] MEDS: INSULIN ASPART [NOVOLOG] 3 ML PEN SC ×6 (01:10→20:57)
[2017-07-05 05:11] LABS: WHITE BLOOD COUNT 14.1 10^3/ul (4.8-10.8)
[2017-07-05 05:11] LABS: ABNORMAL IP MESSAGE 1; HEMATOCRIT 18.6 % (37.0-47.0); MEAN CORPUSCULAR HEMOGLOBIN 30.2 pg (29.0-33.0); MEAN CORPUSCULAR VOLUME 103.9 fl (82.0-101.0); MEAN PLATELET VOLUME 12.9 fl (7.4-10.4); NUCLEATED RED BLOOD CELLS% 4.6 /100WBC (0.0-0.0); PLATELET COUNT 184 10^3/UL (140-415); RED BLOOD COUNT 1.79 10^6/ul (4.20-5.40); RED CELL DISTRIBUTION WIDTH 16.6 % (11.5-14.5)
[2017-07-05] MEDS: PIPER-TAZO 2.25 GM (PMX) 50 ML IVPB ×3 (05:16→20:51)
[2017-07-05] MEDS: PANTOPRAZOLE 40 MG INJ IV ×2 (05:16→17:34)
[2017-07-05 05:30] LABS: POSITIVE DIFF @See below
[2017-07-05 05:33] LABS: ADD MAN DIFF? YES; HEMOGLOBIN 5.4 g/dl (12.0-16.0)
[2017-07-05 05:44] LABS: ALBUMIN 2.6 g/dl (3.3-4.9); ANION GAP 14 (8-16); BLOOD UREA NITROGEN 37 mg/dl (7-20); CALCIUM 8.2 mg/dl (8.4-10.2); CARBON DIOXIDE 32 mmol/L (21-31); CHLORIDE 108 mmol/L (97-110); CREATININE 1.79 mg/dl (0.44-1.00); GLUCOSE 124 mg/dl (70-220); MAGNESIUM 2.2 mg/dl (1.7-2.5); PHOSPHORUS 1.2 mg/dl (2.5-4.9); SODIUM 151 mmol/L (135-144)
[2017-07-05 05:47] LABS: POTASSIUM 2.9 mmol/L (3.5-5.1)
[2017-07-05 08:10] LABS: ANISOCYTOSIS 1+ (0-0); BAND NEUTROPHILS #M 1.5 10^3/ul (0.0-0.6); BAND NEUTROPHILS % (M) 11 % (0-4); EOSINOPHILS % (M) 3 % (0-7); ERYTHROBLAST% (NRBC) (M) 8 % (0-0); HYPOCHROMASIA 2+ (0-0); LYMPHOCYTES #M 1.2 10^3/ul (0.8-2.9); LYMPHOCYTES % (M) 9 % (15-51); METAMYELOCYTES #M 0.9 10^3/ul (0.0-0.0); METAMYELOCYTES %M 7 % (0-0); MONOCYTE #M 0.2 10^3/ul (0.3-0.9); MONOCYTES % (M) 2 % (0-11); MYELOCYTES #M 0.5 10^3/ul (0.0-0.0); MYELOCYTES % (M) 4 % (0-0); PLATELET ESTIMATE NORMAL; POLYCHROMASIA 2+ (0-0); SEG NEUT #M 9.2 10^3/ul (1.7-7.5); SEGMENTED NEUTROPHILS (M) % 64 % (39-77)
[2017-07-05 08:39] LABS: AADO2 Arterial 135.1 mmHg (7.0-24.0); Allen Test ACCEPTAB; Arterial Base Excess 8.2 mmol/L (-3.0-3); Arterial Blood Gas Oxygen Sat 97.9 mmHG (95.0-100.0); Arterial COHb 0.8 % (0.0-3.0); Arterial Fraction of Oxyhgb 96.9 % (93.0-99.0); Arterial HCO3 31.9 mmol/L (22.0-26.0); Arterial MetHb 0.2 % (0.0-1.5); Arterial Total Hemglobin 6.6 g/dl (12.0-18.0); Arterial pCO2 40.7 mmhg (35-45); MODE VENT - PC; Site Left Radial
[2017-07-05] MEDS: FOLIC ACID 1 MG TAB NGT (08:42)
[2017-07-05] MEDS: FLUCONAZOLE 100 MG TAB PO (08:42)
[2017-07-05] MEDS: CYANOCOBALAMIN 500 MCG TAB NGT (08:43)
[2017-07-05] MEDS: POTASSIUM CHLORIDE IVPB (08:43)
[2017-07-05] MEDS: SODIUM CHLORIDE 0.45% IVPB (08:43)
[2017-07-05] MEDS: BALSAM PERU/CASTOR OIL 60 GM TUBE TOP ×2 (08:43→20:51)
[2017-07-05] MEDS: INSULIN GLARGINE [LANtus] 3 ML PEN SC (08:44)
[2017-07-05] MEDS: SOD FERRIC GLUC COMPLX 125 MG in SOD CHLORIDE 0.9% 100 ML IVPB (10:48)
[2017-07-05] MEDS: EPOETIN 10000 UNITS/ML (NON ESRD/NON ONCOLOGY) SC (15:54)
[2017-07-05] MEDS: ALBUMIN HUMAN 25% 100 ML IV (16:05)
[2017-07-05] MEDS ORDERED: EPOETIN 4000 UNITS/ML (NON ESRD/NON ONCOLOGY) SC (17:00)
[2017-07-05] MEDS: DESMOPRESSIN 20 MCG in SOD CHLORIDE 0.9% 50 ML IVPB (18:20)
[2017-07-05] MEDS: morphine 2 MG INJ IV (23:26)
[2017-07-06] MEDS: PROPOFOL 100 ML IV ×3 (00:47→22:25)
[2017-07-06] MEDS: INSULIN ASPART [NOVOLOG] 3 ML PEN SC ×6 (01:02→21:19)
[2017-07-06] MEDS: ACCU-CHEK XX (01:02)
[2017-07-06] MEDS: ACETAMINOPHEN 650MG/20.3ML CUP PO ×2 (01:54→16:45)
[2017-07-06] MEDS: PANTOPRAZOLE 40 MG INJ IV ×2 (05:15→17:54)
[2017-07-06] MEDS: PIPER-TAZO 2.25 GM (PMX) 50 ML IVPB ×3 (05:15→22:06)
[2017-07-06 05:19] LABS: ADD MAN DIFF? NO
[2017-07-06 05:24] LABS: WHITE BLOOD COUNT 14.4 10^3/ul (4.8-10.8)
[2017-07-06 05:24] LABS: ABNORMAL IP MESSAGE 1; BASOPHILS % 0.1 % (0.0-2.0); EOSINOPHILS # 0.5 10^3/ul (0.0-0.5); EOSINOPHILS % 3.3 % (0.0-7.0); HEMATOCRIT 16.8 % (37.0-47.0); LYMPHOCYTES # 1.7 10^3/ul (0.8-2.9); MEAN CORPUSCULAR HEMOGLOBIN 31.2 pg (29.0-33.0); MEAN CORPUSCULAR HGB CONC 29.2 g/dl (32.0-37.0); MEAN PLATELET VOLUME 12.4 fl (7.4-10.4); MONOCYTE # 1.1 10^3/ul (0.3-0.9); MONOCYTES % 7.7 % (0.0-11.0); NEUTROPHIL # 9.6 10^3/ul (1.6-7.5); NEUTROPHILS % 66.6 % (39.0-77.0); NUCLEATED RED BLOOD CELLS # 0.7 10^3/ul (0.0-0.0); NUCLEATED RED BLOOD CELLS% 4.9 /100WBC (0.0-0.0); PLATELET COUNT 175 10^3/UL (140-415); RED BLOOD COUNT 1.57 10^6/ul (4.20-5.40); RED CELL DISTRIBUTION WIDTH 17.4 % (11.5-14.5)
[2017-07-06 05:43] LABS: HEMOGLOBIN 4.9 g/dl (12.0-16.0); POSITIVE DIFF @See below
[2017-07-06 05:59] LABS: INR 1.22; PROTIME 15.6 Sec (11.9-14.9); PT RATIO 1.2
[2017-07-06 06:19] LABS: ALBUMIN 2.7 g/dl (3.3-4.9); ANION GAP 15 (8-16); BLOOD UREA NITROGEN 35 mg/dl (7-20); CALCIUM 8.1 mg/dl (8.4-10.2); CARBON DIOXIDE 32 mmol/L (21-31); CHLORIDE 104 mmol/L (97-110); CREATININE 1.89 mg/dl (0.44-1.00); GLUCOSE 168 mg/dl (70-220); MAGNESIUM 2.1 mg/dl (1.7-2.5); PHOSPHORUS 1.8 mg/dl (2.5-4.9); SODIUM 147 mmol/L (135-144)
[2017-07-06] MEDS: INSULIN GLARGINE [LANtus] 3 ML PEN SC (07:53)
[2017-07-06] MEDS: CYANOCOBALAMIN 500 MCG TAB NGT (08:38)
[2017-07-06] MEDS: FOLIC ACID 1 MG TAB NGT (08:38)
[2017-07-06] MEDS: FLUCONAZOLE 100 MG TAB PO (08:38)
[2017-07-06] MEDS: BALSAM PERU/CASTOR OIL 60 GM TUBE TOP ×2 (08:55→21:12)
[2017-07-06] MEDS: SOD FERRIC GLUC COMPLX 125 MG in SOD CHLORIDE 0.9% 100 ML IVPB (10:58)
[2017-07-06 11:20] LABS: Allen Test ACCEPTAB; Arterial Base Excess 6.5 mmol/L (-3.0-3); Arterial Blood Gas Oxygen Sat 97.8 mmHG (95.0-100.0); Arterial COHb 0.6 % (0.0-3.0); Arterial Fraction of Oxyhgb 96.9 % (93.0-99.0); Arterial HCO3 30.7 mmol/L (22.0-26.0); Arterial MetHb 0.3 % (0.0-1.5); Arterial Total Hemglobin 5.6 g/dl (12.0-18.0); Arterial pCO2 42.5 mmhg (35-45); MODE VENT - AC; Site Right Radial
[2017-07-07] MEDS: ACCU-CHEK XX (00:50)
[2017-07-07] MEDS: INSULIN ASPART [NOVOLOG] 3 ML PEN SC ×6 (00:55→20:55)
[2017-07-07] MEDS: PIPER-TAZO 2.25 GM (PMX) 50 ML IVPB ×3 (05:46→21:35)
[2017-07-07] MEDS: PANTOPRAZOLE 40 MG INJ IV ×2 (05:46→17:09)
[2017-07-07 06:04] LABS: ADD MAN DIFF? NO
[2017-07-07 06:19] LABS: WHITE BLOOD COUNT 16.1 10^3/ul (4.8-10.8)
[2017-07-07 06:19] LABS: ABNORMAL IP MESSAGE 1; BASOPHILS % 0.2 % (0.0-2.0); EOSINOPHILS # 0.8 10^3/ul (0.0-0.5); EOSINOPHILS % 5.1 % (0.0-7.0); HEMATOCRIT 18.2 % (37.0-47.0); LYMPHOCYTES # 1.9 10^3/ul (0.8-2.9); LYMPHOCYTES % 11.7 % (15.0-51.0); MEAN CORPUSCULAR HEMOGLOBIN 31.5 pg (29.0-33.0); MEAN CORPUSCULAR HGB CONC 28.6 g/dl (32.0-37.0); MEAN CORPUSCULAR VOLUME 110.3 fl (82.0-101.0); MEAN PLATELET VOLUME 13.1 fl (7.4-10.4); MONOCYTE # 1.1 10^3/ul (0.3-0.9); MONOCYTES % 7.1 % (0.0-11.0); NEUTROPHIL # 10.6 10^3/ul (1.6-7.5); NEUTROPHILS % 65.9 % (39.0-77.0); NUCLEATED RED BLOOD CELLS # 0.6 10^3/ul (0.0-0.0); NUCLEATED RED BLOOD CELLS% 3.7 /100WBC (0.0-0.0); PLATELET COUNT 194 10^3/UL (140-415); RED BLOOD COUNT 1.65 10^6/ul (4.20-5.40); RED CELL DISTRIBUTION WIDTH 18.8 % (11.5-14.5)
[2017-07-07 06:52] LABS: ALBUMIN 2.6 g/dl (3.3-4.9); ANION GAP 14 (8-16); BLOOD UREA NITROGEN 56 mg/dl (7-20); CALCIUM 7.8 mg/dl (8.4-10.2); CARBON DIOXIDE 32 mmol/L (21-31); CHLORIDE 102 mmol/L (97-110); CREATININE 2.76 mg/dl (0.44-1.00); GLUCOSE 131 mg/dl (70-220); MAGNESIUM 2.2 mg/dl (1.7-2.5); PHOSPHORUS 2.5 mg/dl (2.5-4.9); POTASSIUM 4.3 mmol/L (3.5-5.1); SODIUM 144 mmol/L (135-144)
[2017-07-07 07:02] LABS: POSITIVE DIFF @See below
[2017-07-07 07:03] LABS: HEMOGLOBIN 5.2 g/dl (12.0-16.0)
[2017-07-07] MEDS: INSULIN GLARGINE [LANtus] 3 ML PEN SC (08:24)
[2017-07-07] MEDS: FOLIC ACID 1 MG TAB NGT (08:26)
[2017-07-07] MEDS: FLUCONAZOLE 100 MG TAB PO (08:26)
[2017-07-07 09:28] LABS: ANISOCYTOSIS 2+ (0-0); BAND NEUTROPHILS #M 1.4 10^3/ul (0.0-0.6); BAND NEUTROPHILS % (M) 9 % (0-4); EOSINOPHILS % (M) 9 % (0-7); ERYTHROBLAST% (NRBC) (M) 2 % (0-0); GIANT THROMBO% (M) 1 % (0-0); HYPOCHROMASIA 2+ (0-0); LYMPHOCYTES #M 1.2 10^3/ul (0.8-2.9); LYMPHOCYTES % (M) 8 % (15-51); METAMYELOCYTES #M 0.1 10^3/ul (0.0-0.0); METAMYELOCYTES %M 1 % (0-0); MICROCYTOSIS 1+ (0-0); MONOCYTE #M 0.8 10^3/ul (0.3-0.9); MONOCYTES % (M) 5 % (0-11); MYELOCYTES #M 0.1 10^3/ul (0.0-0.0); MYELOCYTES % (M) 1 % (0-0); PLATELET ESTIMATE NORMAL; POLYCHROMASIA 1+ (0-0); SEGMENTED NEUTROPHILS (M) % 67 % (39-77); SMUDGE%M 4 % (0-0)
[2017-07-07] MEDS: BALSAM PERU/CASTOR OIL 60 GM TUBE TOP ×2 (13:00→20:55)
[2017-07-07] MEDS: CYANOCOBALAMIN 500 MCG TAB NGT (13:07)
[2017-07-07] MEDS: ALBUMIN HUMAN 25% 100 ML IV (14:05)
[2017-07-07] MEDS: PROPOFOL 100 ML IV (15:15)
[2017-07-07] MEDS: EPOETIN 10000 UNITS/ML (NON ESRD/NON ONCOLOGY) SC (17:09)
[2017-07-08] MEDS: INSULIN ASPART [NOVOLOG] 3 ML PEN SC ×6 (00:19→21:08)
[2017-07-08] MEDS: ACCU-CHEK XX (02:00)
[2017-07-08] MEDS: PROPOFOL 100 ML IV ×3 (03:34→22:30)
[2017-07-08 05:25] LABS: WHITE BLOOD COUNT 15.5 10^3/ul (4.8-10.8)
[2017-07-08 05:25] LABS: ABNORMAL IP MESSAGE 1; HEMATOCRIT 18.4 % (37.0-47.0); MEAN CORPUSCULAR HEMOGLOBIN 31.3 pg (29.0-33.0); MEAN CORPUSCULAR HGB CONC 28.3 g/dl (32.0-37.0); MEAN CORPUSCULAR VOLUME 110.8 fl (82.0-101.0); MEAN PLATELET VOLUME 12.9 fl (7.4-10.4); NUCLEATED RED BLOOD CELLS% 3.7 /100WBC (0.0-0.0); PLATELET COUNT 170 10^3/UL (140-415); RED BLOOD COUNT 1.66 10^6/ul (4.20-5.40); RED CELL DISTRIBUTION WIDTH 19.7 % (11.5-14.5)
[2017-07-08 06:12] LABS: HEMOGLOBIN 5.2 g/dl (12.0-16.0); POSITIVE DIFF @See below
[2017-07-08] MEDS: PIPER-TAZO 2.25 GM (PMX) 50 ML IVPB ×3 (06:12→22:30)
[2017-07-08] MEDS: PANTOPRAZOLE 40 MG INJ IV ×2 (06:12→18:24)
[2017-07-08 06:13] LABS: ADD MAN DIFF? YES
[2017-07-08 06:55] LABS: ANION GAP 17 (8-16); BLOOD UREA NITROGEN 41 mg/dl (7-20); CALCIUM 7.8 mg/dl (8.4-10.2); CARBON DIOXIDE 30 mmol/L (21-31); CHLORIDE 99 mmol/L (97-110); CREATININE 2.14 mg/dl (0.44-1.00); GLUCOSE 143 mg/dl (70-220); MAGNESIUM 2.2 mg/dl (1.7-2.5); PHOSPHORUS 2.9 mg/dl (2.5-4.9); POTASSIUM 4.2 mmol/L (3.5-5.1); SODIUM 142 mmol/L (135-144)
[2017-07-08] MEDS: INSULIN GLARGINE [LANtus] 3 ML PEN SC (08:08)
[2017-07-08] MEDS: CYANOCOBALAMIN 500 MCG TAB NGT (09:40)
[2017-07-08] MEDS: FOLIC ACID 1 MG TAB NGT (09:41)
[2017-07-08] MEDS: FLUCONAZOLE 100 MG TAB PO (09:41)
[2017-07-08] MEDS: BALSAM PERU/CASTOR OIL 60 GM TUBE TOP ×2 (09:41→21:15)
[2017-07-08 10:43] LABS: ANISOCYTOSIS 2+ (0-0); BAND NEUTROPHILS #M 2.4 10^3/ul (0.0-0.6); BAND NEUTROPHILS % (M) 16 % (0-4); BASOPHIL #M 0.1 10^3/ul (0.0-0.0); BASOPHILS % (M) 1 % (0-2); EOSINOPHILS % (M) 4 % (0-7); ERYTHROBLAST% (NRBC) (M) 2 % (0-0); GIANT THROMBO% (M) 3 % (0-0); HYPOCHROMASIA 1+ (0-0); LYMPHOCYTES #M 1.8 10^3/ul (0.8-2.9); LYMPHOCYTES % (M) 12 % (15-51); METAMYELOCYTES #M 0.7 10^3/ul (0.0-0.0); METAMYELOCYTES %M 5 % (0-0); MICROCYTOSIS 1+ (0-0); MONOCYTE #M 0.4 10^3/ul (0.3-0.9); MONOCYTES % (M) 3 % (0-11); MYELOCYTES #M 0.1 10^3/ul (0.0-0.0); MYELOCYTES % (M) 1 % (0-0); PLATELET ESTIMATE NORMAL; POLYCHROMASIA 3+ (0-0); SEG NEUT #M 9.4 10^3/ul (1.7-7.5); SEGMENTED NEUTROPHILS (M) % 58 % (39-77); SMUDGE%M 1 % (0-0)
[2017-07-09] MEDS: INSULIN ASPART [NOVOLOG] 3 ML PEN SC ×6 (01:00→20:51)
[2017-07-09] MEDS: ACCU-CHEK XX (01:15)
[2017-07-09] MEDS: PANTOPRAZOLE 40 MG INJ IV ×2 (05:40→17:48)
[2017-07-09] MEDS: PIPER-TAZO 2.25 GM (PMX) 50 ML IVPB (05:42)
[2017-07-09] MEDS: PROPOFOL 100 ML IV ×2 (06:27→18:57)
[2017-07-09] MEDS: ALBUMIN HUMAN 25% 100 ML IV (08:10)
[2017-07-09] MEDS: INSULIN GLARGINE [LANtus] 3 ML PEN SC (08:36)
[2017-07-09] MEDS: FLUCONAZOLE 100 MG TAB PO (09:52)
[2017-07-09] MEDS: CYANOCOBALAMIN 500 MCG TAB NGT (09:52)
[2017-07-09] MEDS: FOLIC ACID 1 MG TAB NGT (09:52)
[2017-07-09] MEDS: BALSAM PERU/CASTOR OIL 60 GM TUBE TOP ×2 (09:53→20:52)
[2017-07-09 10:56] LABS: ADD MAN DIFF? NO
[2017-07-09 11:00] LABS: WHITE BLOOD COUNT 13.6 10^3/ul (4.8-10.8)
[2017-07-09 11:00] LABS: ABNORMAL IP MESSAGE 1; BASOPHILS % 0.2 % (0.0-2.0); EOSINOPHILS # 0.5 10^3/ul (0.0-0.5); EOSINOPHILS % 3.5 % (0.0-7.0); HEMATOCRIT 19.6 % (37.0-47.0); MEAN CORPUSCULAR HEMOGLOBIN 31.6 pg (29.0-33.0); MEAN CORPUSCULAR HGB CONC 28.6 g/dl (32.0-37.0); MEAN CORPUSCULAR VOLUME 110.7 fl (82.0-101.0); MEAN PLATELET VOLUME 12.9 fl (7.4-10.4); MONOCYTE # 0.9 10^3/ul (0.3-0.9); MONOCYTES % 6.7 % (0.0-11.0); NEUTROPHILS % 73.5 % (39.0-77.0); NUCLEATED RED BLOOD CELLS # 0.3 10^3/ul (0.0-0.0); NUCLEATED RED BLOOD CELLS% 1.9 /100WBC (0.0-0.0); PLATELET COUNT 160 10^3/UL (140-415); RED BLOOD COUNT 1.77 10^6/ul (4.20-5.40); RED CELL DISTRIBUTION WIDTH 20.6 % (11.5-14.5)
[2017-07-09 11:26] LABS: POSITIVE DIFF @See below
[2017-07-09 11:27] LABS: HEMOGLOBIN 5.6 g/dl (12.0-16.0)
[2017-07-09 11:30] LABS: ALANINE AMINOTRANSFERASE 33 IU/L (13-69); ALBUMIN/GLOBULIN RATIO 1.07; ALKALINE PHOSPHATASE 77 IU/L (42-121); ANION GAP 14 (8-16); ASPARTATE AMINO TRANSFERASE 36 IU/L (15-46); BILIRUBIN,INDIRECT 0.2 mg/dl (0-1.1); BILIRUBIN,TOTAL 0.2 mg/dl (0.2-1.3); BLOOD UREA NITROGEN 30 mg/dl (7-20); CALCIUM 7.8 mg/dl (8.4-10.2); CARBON DIOXIDE 32 mmol/L (21-31); CHLORIDE 95 mmol/L (97-110); CREATININE 1.47 mg/dl (0.44-1.00); GLUCOSE 140 mg/dl (70-220); POTASSIUM 3.6 mmol/L (3.5-5.1); SODIUM 137 mmol/L (135-144); TOTAL PROTEIN 5.8 g/dl (6.1-8.1)
[2017-07-09] MEDS: EPOETIN 10000 UNITS/ML (NON ESRD/NON ONCOLOGY) SC (17:48)
[2017-07-10] MEDS: INSULIN ASPART [NOVOLOG] 3 ML PEN SC ×6 (01:15→20:57)
[2017-07-10] MEDS: ACCU-CHEK XX (01:17)
[2017-07-10] MEDS: PROPOFOL 100 ML IV ×2 (05:50→17:35)
[2017-07-10] MEDS: PANTOPRAZOLE 40 MG INJ IV ×2 (05:57→18:07)
[2017-07-10 06:21] LABS: WHITE BLOOD COUNT 13.4 10^3/ul (4.8-10.8)
[2017-07-10 06:21] LABS: ABNORMAL IP MESSAGE 1; HEMATOCRIT 20.2 % (37.0-47.0); MEAN CORPUSCULAR HEMOGLOBIN 32.1 pg (29.0-33.0); MEAN CORPUSCULAR HGB CONC 29.2 g/dl (32.0-37.0); MEAN CORPUSCULAR VOLUME 109.8 fl (82.0-101.0); MEAN PLATELET VOLUME 13.1 fl (7.4-10.4); NUCLEATED RED BLOOD CELLS% 1.4 /100WBC (0.0-0.0); PLATELET COUNT 172 10^3/UL (140-415); RED BLOOD COUNT 1.84 10^6/ul (4.20-5.40); RED CELL DISTRIBUTION WIDTH 21.1 % (11.5-14.5)
[2017-07-10 06:29] LABS: ADD MAN DIFF? YES; POSITIVE DIFF @See below
[2017-07-10 06:31] LABS: HEMOGLOBIN 5.9 g/dl (12.0-16.0)
[2017-07-10 06:51] LABS: ANION GAP 15 (8-16); BLOOD UREA NITROGEN 45 mg/dl (7-20); CALCIUM 7.8 mg/dl (8.4-10.2); CARBON DIOXIDE 33 mmol/L (21-31); CHLORIDE 94 mmol/L (97-110); CREATININE 2.06 mg/dl (0.44-1.00); GLUCOSE 119 mg/dl (70-220); MAGNESIUM 2.2 mg/dl (1.7-2.5); PHOSPHORUS 3.6 mg/dl (2.5-4.9); POTASSIUM 4.5 mmol/L (3.5-5.1); SODIUM 137 mmol/L (135-144)
[2017-07-10 07:40] LABS: ANISOCYTOSIS 2+ (0-0); BAND NEUTROPHILS #M 1.6 10^3/ul (0.0-0.6); BAND NEUTROPHILS % (M) 12 % (0-4); EOSINOPHILS % (M) 6 % (0-7); GIANT THROMBO% (M) 1 % (0-0); LYMPHOCYTES % (M) 8 % (15-51); METAMYELOCYTES #M 0.1 10^3/ul (0.0-0.0); METAMYELOCYTES %M 1 % (0-0); MONOCYTES % (M) 15 % (0-11); PLATELET ESTIMATE NORMAL; POLYCHROMASIA 3+ (0-0); REACTIVE LYMPHOCYTES #M 0.5 10^3/ul (0.0-0.0); REACTIVE LYMPHOCYTES% (M) 4 % (0-0); SEG NEUT #M 7.5 10^3/ul (1.7-7.5); SEGMENTED NEUTROPHILS (M) % 54 % (39-77)
[2017-07-10] MEDS: INSULIN GLARGINE [LANtus] 3 ML PEN SC (08:13)
[2017-07-10] MEDS: CYANOCOBALAMIN 500 MCG TAB NGT (08:56)
[2017-07-10] MEDS: FOLIC ACID 1 MG TAB NGT (08:57)
[2017-07-10] MEDS: BALSAM PERU/CASTOR OIL 60 GM TUBE TOP ×2 (09:08→20:58)
[2017-07-10] MEDS: morphine 2 MG INJ IV ×2 (15:20→16:12)
[2017-07-11] MEDS: ACCU-CHEK XX (01:31)
[2017-07-11] MEDS: INSULIN ASPART [NOVOLOG] 3 ML PEN SC ×6 (01:31→20:43)
[2017-07-11] MEDS: PANTOPRAZOLE 40 MG INJ IV ×2 (05:23→17:23)
[2017-07-11 05:53] LABS: ADD MAN DIFF? NO
[2017-07-11 06:00] LABS: AADO2 Arterial 89.3 mmHg (7.0-24.0); Allen Test ACCEPTAB; Arterial Base Excess 5.6 mmol/L (-3.0-3); Arterial Blood Gas Oxygen Sat 94.4 mmHG (95.0-100.0); Arterial COHb 1.2 % (0.0-3.0); Arterial Fraction of Oxyhgb 93.2 % (93.0-99.0); Arterial HCO3 29.7 mmol/L (22.0-26.0); Arterial MetHb 0.1 % (0.0-1.5); Arterial Total Hemglobin 7.7 g/dl (12.0-18.0); Arterial pCO2 41.3 mmhg (35-45); MODE VENT - AC; Site Right Radial
[2017-07-11 06:01] LABS: ABNORMAL IP MESSAGE 1; BASOPHILS % 0.1 % (0.0-2.0); EOSINOPHILS # 0.7 10^3/ul (0.0-0.5); EOSINOPHILS % 4.9 % (0.0-7.0); HEMATOCRIT 20.8 % (37.0-47.0); LYMPHOCYTES # 1.8 10^3/ul (0.8-2.9); LYMPHOCYTES % 13.1 % (15.0-51.0); MEAN CORPUSCULAR HEMOGLOBIN 31.9 pg (29.0-33.0); MEAN CORPUSCULAR HGB CONC 29.3 g/dl (32.0-37.0); MEAN CORPUSCULAR VOLUME 108.9 fl (82.0-101.0); MEAN PLATELET VOLUME 12.7 fl (7.4-10.4); MONOCYTE # 1.2 10^3/ul (0.3-0.9); NEUTROPHIL # 9.4 10^3/ul (1.6-7.5); NEUTROPHILS % 69.5 % (39.0-77.0); NUCLEATED RED BLOOD CELLS # 0.1 10^3/ul (0.0-0.0); NUCLEATED RED BLOOD CELLS% 0.6 /100WBC (0.0-0.0); PLATELET COUNT 188 10^3/UL (140-415); RED BLOOD COUNT 1.91 10^6/ul (4.20-5.40); RED CELL DISTRIBUTION WIDTH 21.1 % (11.5-14.5)
[2017-07-11 06:01] LABS: WHITE BLOOD COUNT 13.6 10^3/ul (4.8-10.8)
[2017-07-11 06:18] LABS: POSITIVE DIFF @See below
[2017-07-11 06:21] LABS: HEMOGLOBIN 6.1 g/dl (12.0-16.0)
[2017-07-11 06:38] LABS: LACTIC ACID 0.9 mmol/L (0.5-2.0)
[2017-07-11 06:42] LABS: ANION GAP 15 (8-16); BLOOD UREA NITROGEN 57 mg/dl (7-20); CARBON DIOXIDE 32 mmol/L (21-31); CHLORIDE 93 mmol/L (97-110); CREATININE 2.59 mg/dl (0.44-1.00); GLUCOSE 121 mg/dl (70-220); MAGNESIUM 2.4 mg/dl (1.7-2.5); PHOSPHORUS 4.5 mg/dl (2.5-4.9); POTASSIUM 5.1 mmol/L (3.5-5.1); SODIUM 135 mmol/L (135-144)
[2017-07-11] MEDS: PROPOFOL 100 ML IV ×2 (06:42→17:23)
[2017-07-11] MEDS: FOLIC ACID 1 MG TAB NGT (08:45)
[2017-07-11] MEDS: CYANOCOBALAMIN 500 MCG TAB NGT (08:45)
[2017-07-11] MEDS: INSULIN GLARGINE [LANtus] 3 ML PEN SC (08:46)
[2017-07-11] MEDS: BALSAM PERU/CASTOR OIL 60 GM TUBE TOP ×2 (08:58→21:17)
[2017-07-11] MEDS: ALBUMIN HUMAN 25% 100 ML IV (12:35)
[2017-07-12] MEDS: INSULIN ASPART [NOVOLOG] 3 ML PEN SC ×6 (01:00→20:55)
[2017-07-12] MEDS: ACCU-CHEK XX ×2 (02:00)
[2017-07-12] MEDS: PROPOFOL 100 ML IV ×2 (02:01→11:05)
[2017-07-12 05:44] LABS: ADD MAN DIFF? NO
[2017-07-12 05:48] LABS: ABNORMAL IP MESSAGE 1; BASOPHILS % 0.2 % (0.0-2.0); EOSINOPHILS # 0.5 10^3/ul (0.0-0.5); EOSINOPHILS % 4.8 % (0.0-7.0); HEMATOCRIT 19.3 % (37.0-47.0); LYMPHOCYTES # 1.7 10^3/ul (0.8-2.9); LYMPHOCYTES % 14.9 % (15.0-51.0); MEAN CORPUSCULAR HEMOGLOBIN 31.6 pg (29.0-33.0); MEAN PLATELET VOLUME 13.3 fl (7.4-10.4); MONOCYTE # 1.2 10^3/ul (0.3-0.9); MONOCYTES % 10.5 % (0.0-11.0); NEUTROPHIL # 7.5 10^3/ul (1.6-7.5); NEUTROPHILS % 67.4 % (39.0-77.0); NUCLEATED RED BLOOD CELLS% 0.4 /100WBC (0.0-0.0); PLATELET COUNT 186 10^3/UL (140-415); RED BLOOD COUNT 1.77 10^6/ul (4.20-5.40); RED CELL DISTRIBUTION WIDTH 20.2 % (11.5-14.5)
[2017-07-12 05:48] LABS: WHITE BLOOD COUNT 11.2 10^3/ul (4.8-10.8)
[2017-07-12] MEDS: PANTOPRAZOLE 40 MG INJ IV ×2 (06:21→17:42)
[2017-07-12 06:29] LABS: POSITIVE DIFF @See below
[2017-07-12 06:32] LABS: HEMOGLOBIN 5.6 g/dl (12.0-16.0)
[2017-07-12 06:33] LABS: ANION GAP 13 (8-16); BLOOD UREA NITROGEN 42 mg/dl (7-20); CARBON DIOXIDE 34 mmol/L (21-31); CHLORIDE 90 mmol/L (97-110); CREATININE 2.03 mg/dl (0.44-1.00); GLUCOSE 108 mg/dl (70-220); MAGNESIUM 2.3 mg/dl (1.7-2.5); PHOSPHORUS 4.3 mg/dl (2.5-4.9); POTASSIUM 3.7 mmol/L (3.5-5.1); SODIUM 133 mmol/L (135-144)
[2017-07-12] MEDS: INSULIN GLARGINE [LANtus] 3 ML PEN SC (07:58)
[2017-07-12] MEDS: FOLIC ACID 1 MG TAB NGT (08:50)
[2017-07-12] MEDS: CYANOCOBALAMIN 500 MCG TAB NGT (08:50)
[2017-07-12] MEDS: BALSAM PERU/CASTOR OIL 60 GM TUBE TOP ×2 (09:02→20:59)
[2017-07-12] MEDS ORDERED: ALBUMIN HUMAN 5% 500 ML (13:00)
[2017-07-12] MEDS: ALBUMIN HUMAN 25% 100 ML IV (13:07)
[2017-07-12] MEDS: EPOETIN 10000 UNITS/ML (NON ESRD/NON ONCOLOGY) SC (17:06)
[2017-07-12] MEDS: morphine 2 MG INJ IV (23:41)
[2017-07-13] MEDS: INSULIN ASPART [NOVOLOG] 3 ML PEN SC ×6 (01:00→21:00)
[2017-07-13] MEDS: ACCU-CHEK XX (02:00)
[2017-07-13] MEDS: PROPOFOL 100 ML IV ×3 (04:34→20:32)
[2017-07-13 05:22] LABS: WHITE BLOOD COUNT 9.6 10^3/ul (4.8-10.8)
[2017-07-13 05:22] LABS: ABNORMAL IP MESSAGE 1; HEMATOCRIT 18.8 % (37.0-47.0); MEAN CORPUSCULAR HEMOGLOBIN 31.8 pg (29.0-33.0); MEAN CORPUSCULAR HGB CONC 29.8 g/dl (32.0-37.0); MEAN CORPUSCULAR VOLUME 106.8 fl (82.0-101.0); NUCLEATED RED BLOOD CELLS% 0.2 /100WBC (0.0-0.0); PLATELET COUNT 189 10^3/UL (140-415); RED BLOOD COUNT 1.76 10^6/ul (4.20-5.40)
[2017-07-13 05:42] LABS: POSITIVE DIFF @See below
[2017-07-13 05:43] LABS: ADD MAN DIFF? YES; HEMOGLOBIN 5.6 g/dl (12.0-16.0)
[2017-07-13] MEDS: PANTOPRAZOLE 40 MG INJ IV ×2 (05:43→18:09)
[2017-07-13 06:14] LABS: ALBUMIN 2.9 g/dl (3.3-4.9); ANION GAP 11 (8-16); BLOOD UREA NITROGEN 28 mg/dl (7-20); CALCIUM 8.2 mg/dl (8.4-10.2); CARBON DIOXIDE 33 mmol/L (21-31); CHLORIDE 93 mmol/L (97-110); GLUCOSE 94 mg/dl (70-220); MAGNESIUM 2.2 mg/dl (1.7-2.5); PHOSPHORUS 4.2 mg/dl (2.5-4.9); POTASSIUM 3.8 mmol/L (3.5-5.1); SODIUM 133 mmol/L (135-144)
[2017-07-13] MEDS: CYANOCOBALAMIN 500 MCG TAB NGT (08:38)
[2017-07-13] MEDS: FOLIC ACID 1 MG TAB NGT (08:38)
[2017-07-13] MEDS: INSULIN GLARGINE [LANtus] 3 ML PEN SC (09:07)
[2017-07-13] MEDS: BALSAM PERU/CASTOR OIL 60 GM TUBE TOP ×2 (09:07→21:00)
[2017-07-13 09:38] LABS: ANISOCYTOSIS 1+ (0-0); BAND NEUTROPHILS #M 0.9 10^3/ul (0.0-0.6); BAND NEUTROPHILS % (M) 10 % (0-4); BASOPHILS % (M) 1 % (0-2); EOSINOPHILS % (M) 5 % (0-7); HYPOCHROMASIA 2+ (0-0); LYMPHOCYTES #M 1.3 10^3/ul (0.8-2.9); LYMPHOCYTES % (M) 14 % (15-51); METAMYELOCYTES #M 0.4 10^3/ul (0.0-0.0); METAMYELOCYTES %M 5 % (0-0); MONOCYTE #M 0.4 10^3/ul (0.3-0.9); MONOCYTES % (M) 5 % (0-11); PLATELET ESTIMATE NORMAL; POIKILOCYTOSIS 1+ (0-0); POLYCHROMASIA 1+ (0-0); SEG NEUT #M 5.8 10^3/ul (1.7-7.5); SEGMENTED NEUTROPHILS (M) % 60 % (39-77); SMUDGE%M 4 % (0-0)
[2017-07-13] MEDS: DEXTROSE 50% 50 ML SYRINGE IV (18:08)
[2017-07-14] MEDS: INSULIN ASPART [NOVOLOG] 3 ML PEN SC ×3 (01:00→08:33)
[2017-07-14 05:43] LABS: ADD MAN DIFF? NO
[2017-07-14 05:50] LABS: ABNORMAL IP MESSAGE 1; BASOPHILS % 0.3 % (0.0-2.0); EOSINOPHILS # 0.5 10^3/ul (0.0-0.5); EOSINOPHILS % 6.1 % (0.0-7.0); HEMATOCRIT 19.6 % (37.0-47.0); LYMPHOCYTES # 1.3 10^3/ul (0.8-2.9); LYMPHOCYTES % 14.4 % (15.0-51.0); MEAN CORPUSCULAR HEMOGLOBIN 32.1 pg (29.0-33.0); MEAN CORPUSCULAR HGB CONC 30.6 g/dl (32.0-37.0); MEAN CORPUSCULAR VOLUME 104.8 fl (82.0-101.0); MEAN PLATELET VOLUME 12.6 fl (7.4-10.4); MONOCYTE # 1.1 10^3/ul (0.3-0.9); MONOCYTES % 12.5 % (0.0-11.0); NEUTROPHIL # 5.8 10^3/ul (1.6-7.5); NEUTROPHILS % 65.5 % (39.0-77.0); NUCLEATED RED BLOOD CELLS% 0.2 /100WBC (0.0-0.0); PLATELET COUNT 224 10^3/UL (140-415); RED BLOOD COUNT 1.87 10^6/ul (4.20-5.40); RED CELL DISTRIBUTION WIDTH 18.6 % (11.5-14.5)
[2017-07-14 05:50] LABS: WHITE BLOOD COUNT 8.8 10^3/ul (4.8-10.8)
[2017-07-14 05:59] LABS: POSITIVE DIFF @See below
[2017-07-14] MEDS: PROPOFOL 100 ML IV (06:10)
[2017-07-14] MEDS: PANTOPRAZOLE 40 MG INJ IV (06:10)
[2017-07-14 06:31] LABS: ALBUMIN 2.8 g/dl (3.3-4.9); ANION GAP 13 (8-16); BLOOD UREA NITROGEN 39 mg/dl (7-20); CALCIUM 8.1 mg/dl (8.4-10.2); CARBON DIOXIDE 31 mmol/L (21-31); CHLORIDE 93 mmol/L (97-110); CREATININE 2.27 mg/dl (0.44-1.00); GLUCOSE 80 mg/dl (70-220); MAGNESIUM 2.3 mg/dl (1.7-2.5); PHOSPHORUS 5.2 mg/dl (2.5-4.9); POTASSIUM 4.3 mmol/L (3.5-5.1); SODIUM 133 mmol/L (135-144)
[2017-07-14] MEDS: CYANOCOBALAMIN 500 MCG TAB NGT (08:27)
[2017-07-14] MEDS: FOLIC ACID 1 MG TAB NGT (08:34)
[2017-07-14] MEDS: INSULIN GLARGINE [LANtus] 3 ML PEN SC (08:34)
[2017-07-14] MEDS: morphine (DRIP) 100 MG/100 ML 100 ML IV (13:16)
[2017-07-14] MEDS ORDERED: LORAZEPAM 2 MG INJ (13:30)
[2017-07-14] MEDS: LORAZEPAM 2 MG INJ IV ×2 (13:34→15:16)
== END 2017-07-14 16:17 | disposition expired | DRG 870 ==
LOC: E/R 00:58 → ICU 02:24
PROC: 5A1955Z Respiratory Ventilation, Greater than 96 Consecutive Hours (ICD-10-PCS; principal; 2017-06-28)
PROC: 0BH17EZ Insertion of Endotracheal Airway into Trachea, Via Natural or Artificial Opening (ICD-10-PCS; 2017-06-28)
PROC: 5A1D70Z Performance of Urinary Filtration, Intermittent, Less than 6 Hours Per Day (ICD-10-PCS; 2017-07-02)
PROC: 4A133R1 Monitoring of Arterial Saturation, Peripheral, Percutaneous Approach (ICD-10-PCS; 2017-07-02)
PROC: 02HV33Z Insertion of Infusion Device into Superior Vena Cava, Percutaneous Approach (ICD-10-PCS; 2017-07-03)
PROC: B543ZZA Ultrasonography of Right Jugular Veins, Guidance (ICD-10-PCS; 2017-07-03)
DX: A41.9 Sepsis, unspecified organism (principal); J96.01 Acute respiratory failure with hypoxia; N17.0 Acute kidney failure with tubular necrosis; I21.4 Non-ST elevation (NSTEMI) myocardial infarction; J18.9 Pneumonia, unspecified organism; G92 Toxic encephalopathy; R65.21 Severe sepsis with septic shock; I50.33 Acute on chronic diastolic (congestive) heart failure; N18.6 End stage renal disease; N39.0 Urinary tract infection, site not specified; E87.1 Hypo-osmolality and hyponatremia; B37.49 Other urogenital candidiasis; I42.9 Cardiomyopathy, unspecified; I13.2 Hypertensive heart and chronic kidney disease with heart failure and with stage 5 chronic kidney disease, or end stage renal disease; T82.838A Hemorrhage due to vascular prosthetic devices, implants and grafts, initial encounter; Z51.5 Encounter for palliative care; Z66 Do not resuscitate; I46.9 Cardiac arrest, cause unspecified; E11.22 Type 2 diabetes mellitus with diabetic chronic kidney disease; D53.9 Nutritional anemia, unspecified; E78.00 Pure hypercholesterolemia, unspecified; E03.9 Hypothyroidism, unspecified; R13.10 Dysphagia, unspecified; E88.09 Other disorders of plasma-protein metabolism, not elsewhere classified; D69.6 Thrombocytopenia, unspecified; Z99.2 Dependence on renal dialysis; R33.9 Retention of urine, unspecified; Z16.21 Resistance to vancomycin; E87.6 Hypokalemia; Z16.12 Extended spectrum beta lactamase (ESBL) resistance; Y84.8 Other medical procedures as the cause of abnormal reaction of the patient, or of later complication, without mention of misadventure at the time of the procedure; Y92.230 Patient room in hospital as the place of occurrence of the external cause
CPT/HCPCS: 31500; 36415; 36600; 70450; 71010; 71045; 76700; 76775; 80048; 80053; 80061; 80069; 81001; 82270; 82436; 82550; 82553; 82728; 82803; 82962; 83540; 83605; 83735; 83880; 84100; 84133; 84300; 84439; 84443; 84484; 85025; 85610; 85730; 87040; 87045; 87070; 87081; 87086; 90935; 93005; 93306; 93970; 94002; 94003; 94770; 96374; 96375; 99291-25; J1940